=== PATIENT | male | born 1930 | race Caucasian/White ===

== ENCOUNTER 2017-05-31 07:40 | Day surgery (SDC) | payer MEDICARE, BC ==
[~2017-05-31 07:40] MED LIST: Cefuroxime 10 MG/ML SYRINGE EYERT SCH; Lidocaine 1% PF 2 ML SDV INJECT SCH; Pilocarpine 4% Ophth Soln 15 ML Bot EYERT SCH
[2017-05-31] MEDS: Polymyxin B/Trimethoprim 10 ML Bottle EYERT SCH ×3 (08:15→10:27)
[2017-05-31] MEDS: Brimonidine 0.2% Ophth Soln 5 ML Bottle EYERT SCH ×3 (08:24→10:27)
[2017-05-31] MEDS: Phenylephrine 2.5% Ophth Soln 2 ML Bot EYERT SCH ×5 (08:29→10:09)
--- NOTE | 2017-05-31 08:44 | PCM.PREANE ---
Preanesthetic Assessment - Anesthesia/Transfusion/Family Hx Anesthesia History: Prior Anesthesia Without Reaction Family History of Anesthesia Reaction: No Transfusion History: Prior Transfusion Without Reaction - Review of Systems General: No Symptoms Pulmonary: No Symptoms Cardiovascular: No Symptoms Gastrointestinal: No Symptoms Neurological: No Symptoms - Physical Assessment NPO Status Date: 05/30/17 NPO Status Time: 18:00 Pulse: 67 O2 Sat by Pulse Oximetry: 91 Respiratory Rate: 16 Blood Pressure: 156/76 Temperature: 36.9 C Vital Signs: Last Vital Signs Temp 36.9 C 05/31/17 08:00 Pulse 67 05/31/17 08:00 Resp 16 05/31/17 08:00 BP 156/76 H 05/31/17 08:00 Pulse Ox 91 L 05/31/17 08:00 Height: 1.68 m Weight: 81.647 kg ASA Class: 3 Mental Status: Alert & Oriented x3 Airway Class: Mallampati = 1 Dentition: Reports: Normal Dentition, Broken Tooth/Teeth Thyro-Mental Finger Breadths: 3 Mouth Opening Finger Breadths: 3 ROM/Head Extension: Limited/Partial (neck stiffness) Lungs: Clear to Auscultation, Normal Respiratory Effort Cardiovascular: Regular Rate, Regular Rhythm - Allergies Allergies/Adverse Reactions: Allergies Allergy/AdvReac Type Severity Reaction Status Date / Time No Known Allergies Allergy Verified 05/25/17 11:29 - Blood Blood Available: No Product(s) Available: None - Anesthesia Plan Pre-Op Medication Ordered: None - Acknowledgements Anesthesia Type Planned: MAC Pt an Appropriate Candidate for the Planned Anesthesia: Yes Alternatives and Risks of Anesthesia Discussed w Pt/Guardian: Yes Pt/Guardian Understands and Agrees with Anesthesia Plan: Yes PreAnesthesia Questionnaire - HOME MEDS Home Medications: Home Meds Dutasteride 0.5 mg PO DAILY 05/26/17 [History] Ramipril 5 mg PO DAILY 05/26/17 [History] Tamsulosin [Flomax] 0.4 mg PO DAILY 05/26/17 [History] - CURRENT (IN HOUSE) MEDS Current Meds: Current Medications Brimonidine Tartrate (Alphagan 0.2% Ophth Soln) 0 ml EYERT ASDIRECTED ZANE Stop: 05/31/17 16:00 Last Admin: 05/31/17 08:24 Dose: 1 drop Cefuroxime Sodium (Zinacef) 0 mg EYERT ASDIRECTED ZANE Stop: 05/31/17 16:00 Lidocaine HCl (Xylocaine-Mpf 1%) 10 ml INJECT ASDIRECTED ZANE Stop: 05/31/17 16:00 Phenylephrine HCl (Allen-Synephrine 2.5% Ophth Soln) 0 ml EYERT ASDIRECTED ZANE Stop: 05/31/17 16:00 Last Admin: 05/31/17 08:29 Dose: 1 drop Pilocarpine HCl (Pilocar 4% Ophth Soln) 0 ml EYERT ASDIRECTED ZANE Stop: 05/31/17 16:00 Polymyxin/Trimethoprim Sulfate (Polytrim Ophth Soln) 0 ml EYERT ASDIRECTED ZANE Stop: 05/31/17 16:00 Last Admin: 05/31/17 08:15 Dose: 1 drop Tetracaine HCl (Tetracaine 0.5% Steri-Unit Era) 0 ml EYERT ASDIRECTED ZANE Stop: 05/31/17 16:00 Tropicamide (Mydriacyl 1% Ophth Soln) 0 ml EYERT ASDIRECTED ZANE Stop: 05/31/17 16:00 Last Admin: 05/31/17 08:36 Dose: 1 drop
[2017-05-31] MEDS: Tetracaine HCl/PF 0.5% 4 ML Bottle EYERT SCH ×2 (09:45→10:12)
--- NOTE | 2017-05-31 10:29 | PCM48HPAN ---
Post Anesthesia Note - EVALUATION WITHIN 48HRS OF ANESTHETIC Vital Signs in Normal Range: Yes Patient Participated in Evaluation: Yes Respiratory Function Stable: Yes Airway Patent: Yes Cardiovascular Function Stable: Yes Hydration Status Stable: Yes Pain Control Satisfactory: Yes Nausea and Vomiting Control Satisfactory: Yes Mental Status Recovered: Yes
[2017-05-31 10:41] VITALS: BP 164/88
== END 2017-05-31 10:40 | disposition home or self-care (01) ==
LOC: JD.SDS 07:40
PROVIDERS: ATTEND Ophthalmology
DX: H26.9 Unspecified cataract (principal); H53.8 Other visual disturbances; H21.81 Floppy iris syndrome; H21.41 Pupillary membranes, right eye; I10 Essential (primary) hypertension; E78.00 Pure hypercholesterolemia, unspecified; J45.909 Unspecified asthma, uncomplicated; Z90.49 Acquired absence of other specified parts of digestive tract; Z98.890 Other specified postprocedural states; Z87.891 Personal history of nicotine dependence; Z79.899 Other long term (current) drug therapy
CPT/HCPCS: 66984; A9270; C1780; J0697

== ENCOUNTER 2017-06-30 07:53 | Day surgery (SDC) | payer MEDICARE, BC ==
[~2017-06-30 07:53] MED LIST changes: +Cefuroxime 10 MG/ML SYRINGE EYELF SCH; -Cefuroxime 10 MG/ML SYRINGE EYERT SCH; +Pilocarpine 4% Ophth Soln 15 ML Bot EYELF SCH; -Pilocarpine 4% Ophth Soln 15 ML Bot EYERT SCH
[2017-06-30] MEDS: Polymyxin B/Trimethoprim 10 ML Bottle EYELF SCH ×3 (08:48→10:42)
[2017-06-30] MEDS: Brimonidine 0.2% Ophth Soln 5 ML Bottle EYELF SCH ×3 (08:57→10:42)
[2017-06-30] MEDS: Phenylephrine 2.5% Ophth Soln 2 ML Bot EYELF SCH ×5 (09:03→10:22)
--- NOTE | 2017-06-30 09:08 | PCM.PREANE ---
Preanesthetic Assessment - Anesthesia/Transfusion/Family Hx Anesthesia History: Prior Anesthesia Without Reaction Family History of Anesthesia Reaction: No Transfusion History: Prior Transfusion Without Reaction - Review of Systems General: No Symptoms Pulmonary: No Symptoms (O2 at night) Cardiovascular: No Symptoms Gastrointestinal: No Symptoms Neurological: No Symptoms Other: Reports: None - Physical Assessment NPO Status Date: 06/29/17 NPO Status Time: 23:00 Pulse: 70 O2 Sat by Pulse Oximetry: 91 Respiratory Rate: 16 Blood Pressure: 157/82 Temperature: 36.9 C Vital Signs: Last Vital Signs Temp 36.9 C 06/30/17 08:40 Pulse 70 06/30/17 08:40 Resp 16 06/30/17 08:40 BP 157/82 H 06/30/17 08:40 Pulse Ox 91 L 06/30/17 08:40 Height: 1.68 m Weight: 81.647 kg ASA Class: 3 Mental Status: Alert & Oriented x3 Airway Class: Mallampati = 1 Dentition: Reports: Normal Dentition, Caries Thyro-Mental Finger Breadths: 3 Mouth Opening Finger Breadths: 3 ROM/Head Extension: Limited/Partial Lungs: Clear to Auscultation, Normal Respiratory Effort Cardiovascular: Regular Rate, Regular Rhythm - Allergies Allergies/Adverse Reactions: Allergies Allergy/AdvReac Type Severity Reaction Status Date / Time No Known Allergies Allergy Verified 06/29/17 14:27 - Blood Product(s) Available: None - Anesthesia Plan Pre-Op Medication Ordered: None - Acknowledgements Anesthesia Type Planned: MAC Pt an Appropriate Candidate for the Planned Anesthesia: Yes Alternatives and Risks of Anesthesia Discussed w Pt/Guardian: Yes Pt/Guardian Understands and Agrees with Anesthesia Plan: Yes PreAnesthesia Questionnaire - HOME MEDS Home Medications: Home Meds Dutasteride 0.5 mg PO DAILY 05/26/17 [History] Ramipril 5 mg PO DAILY 05/26/17 [History] Tamsulosin [Flomax] 0.4 mg PO DAILY 05/26/17 [History] - CURRENT (IN HOUSE) MEDS Current Meds: Current Medications Brimonidine Tartrate (Alphagan 0.2% Ophth Soln) 0 ml EYELF ASDIRECTED ZANE Stop: 06/30/17 18:00 Last Admin: 06/30/17 08:57 Dose: 1 drop Cefuroxime Sodium (Zinacef) 0 mg EYELF ASDIRECTED ZANE Stop: 06/30/17 18:00 Lidocaine HCl (Xylocaine-Mpf 1%) 10 ml INJECT ASDIRECTED ZANE Stop: 06/30/17 18:00 Phenylephrine HCl (Allen-Synephrine 2.5% Ophth Soln) 0 ml EYELF ASDIRECTED ZANE Stop: 06/30/17 18:00 Pilocarpine HCl (Pilocar 4% Ophth Soln) 0 ml EYELF ASDIRECTED ZANE Stop: 06/30/17 18:00 Polymyxin/Trimethoprim Sulfate (Polytrim Ophth Soln) 0 ml EYELF ASDIRECTED ZANE Stop: 06/30/17 18:00 Last Admin: 06/30/17 08:48 Dose: 1 drop Tetracaine HCl (Tetracaine 0.5% Steri-Unit Era) 0 ml EYELF ASDIRECTED ZANE Stop: 06/30/17 18:00 Tropicamide (Mydriacyl 1% Ophth Soln) 0 ml EYELF ASDIRECTED ZANE Stop: 06/30/17 18:00
[2017-06-30] MEDS: Tetracaine HCl/PF 0.5% 4 ML Bottle EYELF SCH ×2 (10:17→10:36)
[2017-06-30 10:57] VITALS: BP 163/80
== END 2017-06-30 10:52 | disposition home or self-care (01) ==
LOC: JD.SDS 07:53
PROVIDERS: ATTEND Ophthalmology
PROC: 08RK3JZ Replacement of Left Lens with Synthetic Substitute, Percutaneous Approach (ICD-10-PCS; principal; 2017-06-30)
DX: H25.812 Combined forms of age-related cataract, left eye (principal); H35.363 Drusen (degenerative) of macula, bilateral; H35.3131 Nonexudative age-related macular degeneration, bilateral, early dry stage; H02.834 Dermatochalasis of left upper eyelid; H02.831 Dermatochalasis of right upper eyelid; M19.90 Unspecified osteoarthritis, unspecified site; J44.9 Chronic obstructive pulmonary disease, unspecified; E78.00 Pure hypercholesterolemia, unspecified; I10 Essential (primary) hypertension; Z79.899 Other long term (current) drug therapy; Z90.49 Acquired absence of other specified parts of digestive tract; Z98.42 Cataract extraction status, left eye; Z96.1 Presence of intraocular lens; Z98.890 Other specified postprocedural states; Z87.891 Personal history of nicotine dependence; Z83.518 Family history of other specified eye disorder; Z83.3 Family history of diabetes mellitus
CPT/HCPCS: 66982; A9270; C1780; J0697